=== PATIENT | male | born 1970 | race Caucasian/White ===

== ENCOUNTER 2024-09-23 11:36 | Emergency (ER) | payer BC, SELFPAY ==
[2024-09-23 11:46] VITALS: BP 150/77
[2024-09-23 12:24] LABS: % Basophils 0.6 % (0-2); % Immature Granulocytes 0.4 % (0-0.5); % Lymphocytes 19.9 % (20.5-51.1); % Monocytes 13.4 % (1.7-9.3); % Neutrophils 64.7 % (42.2-75.2); Absolute Eosinophils 0.1 10^3/uL (0-0.7); Absolute Lymphocytes 1.4 10^3/uL (1.2-3.4); Absolute Neutrophils 4.6 10^3/uL (1.4-6.5); Hematocrit 47.4 % (39.0-52.0); Hemoglobin 15.3 g/dL (13.0-18.0); Mean Corp Hgb Conc. 32.3 g/dL (33.0-37.0); Mean Corpuscular Hgb 27.5 pg (27.0-31.0); Mean Corpuscular Volume 85.3 fL (80.0-94.0); Mean Platelet Volume 9.7 fL (7.4-10.4); Nucleated Red Blood Cells % 0 % (-); Platelet Count 216 10^3/uL (130-400); Red Blood Cell Count 5.56 10^6/uL (4.70-6.10); Red Cell Dist. Width 12.9 % (11.5-14.5); White Blood Cell Count 7.1 10^3/uL (4.8-10.8)
[2024-09-23 12:27] VITALS: BP 164/112
[2024-09-23 12:40] LABS: ALT (SGPT) 53 U/L (0-50); AST (SGOT) 39 U/L (17-59); Albumin 4.8 g/dl (3.5-5.0); Alkaline Phosphatase 52 U/L (38-126); Blood Urea Nitrogen 20 mg/dl (9-20); Calcium 9.5 mg/dl (8.4-10.2); Carbon Dioxide 27 mmol/L (22-30); Chloride 98 mmol/L (98-107); Glucose 104 mg/dl (70-99); Potassium 4.3 mmol/L (3.5-5.1); Sodium 136 mmol/L (135-145); Total Bilirubin 1.1 mg/dl (0.2-1.3); eGFR > 60.00
[2024-09-23 12:52] LABS: Troponin I < 0.012 ng/ml
[2024-09-23 13:00] VITALS: BP 131/62
[2024-09-23 13:08] VITALS: BMI 37.6
[2024-09-23 13:10] LABS: TSH Reflex To Free T4 2.83 uIU/ml (0.47-4.68)
--- NOTE | 2024-09-23 13:25 | ED.GENMED ---
History of Present Illness
General
Chief Complaint: Breathing Problem
Source: patient
Exam Limitations: none
Time Seen by Provider: 09/23/24 13:14
Nursing documentation reviewed up to this point in time: agreed with
History of Present Illness
History of Present Illness:
Patient states he started to feel sick on Thursday. C/O fatigue, body aches. 2 days ago he developed fever/chills. Today he was seen at , tested influenza pos. EKG done at showing AFIB. He was referred to ED. No prior history of AFIB.
Reports chest tighness and SOB developed yesterday AM.
Past History
Past History
ED Past Medical History: HTN
Review of Systems
Review of Systems
Allergies reviewed?: Yes
All Other Systems: ROS reviewed and negative except as documented in HPI and ROS
Constitutional: Reports fever and fatigue
EENT: Reports no symptoms
Respiratory: Reports trouble breathing
Cardiac: Reports other (Chest tightness)
ABD/GI: Reports nausea and anorexia
Musculoskeletal: Reports other (Body aches)
Skin: Reports no symptoms
Neurological: Reports no symptoms
Psychiatric: Reports no symptoms
Phy Exam
General Physical Exam
General Presentation: well appearing and mild distress
General age: appears stated age
General Skin: warm and dry
General Habitus: normal
General Mental: alert
Cardiovascular Exam
Cardiovascular Exam: regular rate/rhythm and no edema
Pulmonary Exam
Pulmonary Exam: lungs clear and no respiratory distress
Neurological Exam
Neurological Exam: alert, oriented x3, CN II-XII intact, no motor deficits and no sensory deficits
Musculoskeletal Exam
Musculoskeletal Exam: full ROM and neuro vasc intact
Skin Exam
Skin Exam: normal color, warm/dry and no rash
Psychiatric Exam
Psychiatric Exam: normal mood/affect
Scores
Heart Failure Risk
Heart Failure Risk Score: Yes
History of Stroke or TIA: No
History of intubation for respiratory distress: No
Heart rate on ED arrival >/= 110: No
SaO2 <90% on arrival on room air: No
HR >/=110 during 3min walk test (or too ill to perform test): No
ECG has acute ischemic changes: No
Urea >/=12mmol/L (BUN 33.6mg/dL): No
Serum CO2>/=35mmol/L: No
Troponin I or T elevated to UT Level (0.4mg/dL): No
NT-proBNP >/=5,000ng/L (5,000pg/ml): No
HF Risk Score: 0
Admission Status: LOW RISK 2.8% Consider discharge to home with f/u visit to PCP/Principal Law Clerk
Course
Orders/Labs/Results
Orders:
Orders
09/23/24
Electrocardiogram (*1) Stat
Comment: DONE
09/23/24 11:44
ECG [Electrocardiogram (*1)] Urgent
Reason for Study: Palpitations
EKG- Treatment ONCE
09/23/24 11:55
Complete Blood Count/With Diff Urgent
Comprehensive Metabolic Panel Urgent
TSH Reflex To Free T4 Urgent
Troponin I Urgent
09/23/24 13:21
0.9% Sodium Chloride 1000 ml [Nss] 1,000 ml IV BOLUS
Abnormal Lab Results
09/23/24
11:55
MCHC 32.3 L g/dL
(33.0-37.0)
Absolute Monos (auto) 1.0 H 10^3/uL
(0.1-0.6)
Lymphocytes % 19.9 L %
(20.5-51.1)
Monocytes % 13.4 H %
(1.7-9.3)
Creatinine 1.4 H mg/dL
(0.7-1.3)
Glucose 104 H mg/dl
(70-99)
ALT 53 H U/L
(0-50)
09/23/24 11:55
09/23/24 11:55
Vital Signs
Initial and Last Documented VS:
Initial Vital Signs
Temp Pulse Ox
98.3 F 96
09/23/24 11:40 09/23/24 11:40
Last Documented Vital Signs
Temp Pulse Resp BP Pulse Ox
98.3 F 70 18 137/63 98
09/23/24 11:40 09/23/24 15:30 09/23/24 15:30 09/23/24 14:00 09/23/24 15:30
*Critical Care Note
Total Time (30-74mins, 75-104mins- exclusive of procedures): Not Applicable
Update Note
Update Note:
On exam, Cardiac monitoring reading NSR at rate of 70. EKG completed and confirms NSR. Pulse ox 98% RA. He still reports flu symptoms but chest tightness and SOB improved.
He remains comfortable. No further episodes of Afib. Case discussed with Dr. Mcconnell. WIll hold of on anticoagulation at this time. Patient will be discharged home and will follow up with cardiology. Agrees to return to ED immediately for any
changes in/worsening of his symptoms.
ED Attending Note
-
Portions of this chart may have been created with voice recognition software.� Occasional wrong word or��sound alike� substitutions may have occurred due to the inherent limitations of voice recognition software.
Discharge Plan
Departure
Patient Disposition: Home (Routine Discharge)
Date of Disposition: 09/23/24
Time of Disposition: 15:55
Patient with high blood pressure during this ER visit?: No
Condition: Good
Covid-19: Not Applicable
Discharge Problem:
Atrial fibrillation, Influenza A
Instructions: Flu in adults - Discharge instructions, Atrial fibrillation - Discharge instructions
Referrals:
UNKNOWN - PT DOES,NOT KNOW [Family Provider] -
Abiel Luevano MD [Active] - Call in 1-3 days for appt
Activity Restrictions/Additional Instructions:
Return to the emergency department immediately for return of your symptoms, or for any further concerns.
Interventions
Interventions:
*Risk Screen - Suicide Last Done: 09/23/24 13:03
*General Assessment Last Done: 09/23/24 13:03
*Neglect/Abuse Screening Last Done: 09/23/24 13:03
ED- Fall Risk Assessment Last Done: 09/23/24 13:02
*Nursing Disposition Last Done: 09/23/24 16:12
ED- Cardiac Assessment Last Done: 09/23/24 13:02
ED- Pulmonary Assessment Last Done: 09/23/24 13:02
Discharge Date and Time
Discharge Date/Time: 09/23/24 16:13
Print Language: PERUVIAN
[2024-09-23 14:00] VITALS: BP 137/63
[2024-09-23] MEDS: NSS 1000 IV (14:27)
== END 2024-09-23 16:13 | disposition home or self-care (01) ==
LOC: EMR 11:36
PROVIDERS: Emergency Medicine; EMERGENCY PHYSICIAN Emergency Medicine
DX: I48.91 Unspecified atrial fibrillation (principal); J10.1 Influenza due to other identified influenza virus with other respiratory manifestations; I10 Essential (primary) hypertension
CPT/HCPCS: 99283; 96360; 80053; 84443; 84484; 85025; 93005